=== PATIENT | female | born 1965 | race Caucasian/White ===

== ENCOUNTER → 2016-10-18 | Outpatient (CLI) | payer BC | END | disposition home or self-care (01) | LOC: GMAL 12:11 | PROVIDERS: ATTEND Family Medicine | DX: M79.1 Myalgia (principal) ==

== ENCOUNTER → 2016-12-22 | Outpatient (CLI) | payer BC ==
--- NOTE | 2016-12-24 13:19 | RAD ---
EXAM DESCRIPTION: Hand,Left 3 Views (accession [id number]), Hand,Right 3 Views (accession [id number]) CLINICAL HISTORY: 51 years,Female,PAIN IN LEFT HAND COMPARISON: None FINDINGS: The bilateral hand demonstrates no evidence of fractures or acute abnormalities. Soft tissues appear unremarkable. Minimal age-appropriate loss of joint space of all the distal and proximal interphalangeal joints. But some mild juxta-articular erosions seen at the fifth digit proximal interphalangeal joint bilaterally. IMPRESSION: No acute findings seen in either hand. 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 Some possible evidence of mild rheumatoid arthritis seen at the fifth proximal interphalangeal joint of both hands Electronically signed by: Lemuel Hanson MD 12/24/2016 1:20 PM CDT
--- NOTE | 2016-12-24 13:19 | RAD ---
EXAM DESCRIPTION: Hand,Left 3 Views (accession [id number]), Hand,Right 3 Views (accession [id number]) CLINICAL HISTORY: 51 years,Female,PAIN IN LEFT HAND COMPARISON: None FINDINGS: The bilateral hand demonstrates no evidence of fractures or acute abnormalities. Soft tissues appear unremarkable. Minimal age-appropriate loss of joint space of all the distal and proximal interphalangeal joints. But some mild juxta-articular erosions seen at the fifth digit proximal interphalangeal joint bilaterally. IMPRESSION: No acute findings seen in either hand. 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 Some possible evidence of mild rheumatoid arthritis seen at the fifth proximal interphalangeal joint of both hands Electronically signed by: Lemuel Hanson MD 12/24/2016 1:20 PM CDT
== END | disposition home or self-care (01) ==
LOC: RAD 08:07
PROVIDERS: ATTEND Orthopaedic Surgery
DX: M79.641 Pain in right hand (principal); M79.642 Pain in left hand

== ENCOUNTER → 2017-01-24 | Outpatient (CLI) | payer BC | END | disposition home or self-care (01) | LOC: GMAL 10:47 | PROVIDERS: ATTEND Family Medicine | DX: D51.3 Other dietary vitamin B12 deficiency anemia (principal); R53.83 Other fatigue; E55.9 Vitamin D deficiency, unspecified ==

== ENCOUNTER → 2017-10-24 | Outpatient (CLI) | payer BC | END | disposition home or self-care (01) | LOC: GMAJ 12:42 | PROVIDERS: ATTEND Family Medicine | DX: E55.9 Vitamin D deficiency, unspecified (principal) ==

== ENCOUNTER → 2017-10-31 | Outpatient (CLI) | payer BC ==
--- NOTE | 2017-11-03 03:18 | MAM ---
EXAM DESCRIPTION: 3D Screening BILATERAL : Digital Mammography. CLINICAL HISTORY: 52 years Female SCREENING . No complaints. No family history of breast cancer... COMPARISON: 2-D digital screening bilateral study 08/13/2010. No prior reports available. TECHNIQUE: Bilateral CC and MLO projection full-field images, 3-D tomosynthesis digital mammographic technique. Also bilateral synthesized CC/ MLO full-field images. CAD not utilized. FINDINGS: The breast parenchymal density pattern is: Scattered areas of fibroglandular density. No skin thickening or nipple retraction bilateral solitary coarse microcalcifications. Bilateral intramammary lymph nodes and right axillary lymph nodes. No focal, stellate mass or density, focal asymmetry , and no suspicious microcalcifications bilaterally. Stable mammograms compared to prior study, taking into account differences in mammographic technique IMPRESSION: BI-RADS CATEGORY: 2 - BENIGN FINDINGS. FOLLOW UP: Routine digital bilateral screening, one year interval from October 2017. Written communication explaining the IMPRESSION and follow-up, will be mailed to the patient and referring health care provider. According to the [employer], yearly mammograms are recommended starting at age 40 and continuing as long as a woman is in good health. Any breast change noted on a breast self-exam should be reported promptly to the patient's healthcare provider. Breast MRI is recommended for women with an approximately 20-25% or greater lifetime risk of breast cancer, including women with a strong family history of breast or ovarian cancer and women who have been treated for Hodgkin's disease. A negative mammographic report should not delay tissue diagnosis in patients with significant clinical history or physical findings. Extremely dense breast tissue limits the sensitivity of digital mammography. Electronically signed by: Tahir Lion MD 11/02/2017 4:11 PM CDT
== END ==
LOC: MAMMO 10:00
PROVIDERS: ATTEND Family Medicine
DX: Z12.31 Encounter for screening mammogram for malignant neoplasm of breast (principal)

== ENCOUNTER 2018-08-18 12:25 | Emergency (ER) | payer BC ==
--- NOTE | 2018-08-18 12:54 | ED.PDOC ---
History of Present Illness - General Chief Complaint: Back Pain or Injury Stated Complaint: lower back pain x 2 weeks Time Seen by Provider: 08/18/18 12:34 Source: patient Exam Limitations: no limitations - History of Present Illness Initial Comments: patient comes in today with low back pain 2 weeks that seems to be worsening. Patient states the pain is primarily in the middle of the lumbar sacral area without specific radiation. The pain is moderate in severity sharp, with worsening with movement. Patient denies any bladder or bowel condoms. Patient has chronic peripheral neuropathy but no change in sensation or motor strength since onset of this specific pain. She's had no recent injury, increased activity, or trauma. Patient was worried perhaps it was her kidneys but denies any dysuria, vaginal discharge, history of nephrolithiasis, or hematuria. Timing/Duration: getting worse Quality/Severity: moderate Back Pain Location: lumbar spine Method of Injury/Prior Injury: unknown Improving Factors: rest Worsening Factors: movement Associated Symptoms: denies symptoms Allergies/Adverse Reactions: Allergies NO KNOWN ALLERGY Allergy (Verified 04/12/14 19:38) Home Medications: Ambulatory Orders Lisinopril 10 mg PO DAILY #30 tab 04/12/14 Metformin HCl 500 mg PO BID #30 tab 04/12/14 Cyclobenzaprine HCl [Flexeril] 10 mg PO TID PRN #15 tab 08/18/18 Review of Systems - Review of Systems Constitutional: States: no symptoms reported. Denies: chills, fever, malaise EENTM: Denies: eye pain, ear pain, nose pain, nose congestion Respiratory: States: no symptoms reported. Denies: cough, short of breath Cardiology: States: no symptoms reported. Denies: chest pain, palpitations Gastrointestinal/Abdominal: States: no symptoms reported. Denies: abdominal pa in, diarrhea, nausea, vomiting Genitourinary: States: no symptoms reported. Denies: dysuria, frequency, hematuria Musculoskeletal: States: back pain Past Medical History (General) - Patient Medical History Hx Stroke: No Hx of COPD: No Hx Cardiac Disorders: No Hx Hypertension: Yes Hx Diabetes: Yes Surgical History: no surgical history - Vaccination History Hx Tetanus, Diphtheria Vaccination: No Hx Influenza Vaccination: No Hx Pneumococcal Vaccination: No Immunizations Up to Date: - Pt unsure of immunization currency - Social History Hx Tobacco Use: No Hx Alcohol Use: No Hx Substance Use: No - Female History Patient is a Female of Child Bearing Age (10 -59 yrs old): Yes Patient : No Family Medical History - Family History Father Living Status: Mother Family History: Unknown Hx Cardiac Disease: Yes - Mild NC Hx Family Cancer: - Mother has two spots on lung (undiagnosed) Physical Exam - Physical Exam General Appearance: Alert, Comfortable, No apparent distress Eyes, Ears, Nose, Throat Exam: PERRL/EOMI, normal ENT inspection, TMs normal, pharynx normal Neck Exam: non-tender, full range of motion, normal alignment, normal inspection Cardiovascular/Respiratory: regular rate, rhythm, no M/R/G, normal peripheral pulses, no JVD, normal breath sounds, no respiratory distress Peripheral Pulses: radial,right: 2+, radial,left: 2+ Gastrointestinal/Abdominal: normal bowel sounds, non tender, soft Back Exam: normal inspection, no CVA tenderness, no vertebral tenderness Neurologic: no motor/sensory deficits, alert, oriented x 3 Progress - Results/Orders Results/Orders: Laboratory Results Urine Color Yellow (Yellow) 08/18/18 13:34 Urine Appearance Clear (Clear) 08/18/18 13:34 Urine pH 6.0 (4.5-7.8) 08/18/18 13:34 Ur Specific Kiana 1.015 (1.005-1.030) 08/18/18 13:34 Urine Protein Negative mg/dL 08/18/18 13:34 Urine Glucose (UA) Negative mg/dL (Negative) 08/18/18 13:34 Urine Ketones Negative mg/dL (NEGATIVE) 08/18/18 13:34 Urine Blood Negative (Negative) 08/18/18 13:34 Urine Nitrite Negative 08/18/18 13:34 Urine Bilirubin Negative (NEGATIVE) 08/18/18 13:34 Urine Urobilinogen 0.2 mg/dL (0.2-1.0) 08/18/18 13:34 Ur Leukocyte Esterase Negative (Negative) 08/18/18 13:34 Urine RBC 0 /hpf 08/18/18 13:34 Urine WBC 0 /hpf 08/18/18 13:34 Ur Epithelial Cells 3-5 /hpf 08/18/18 13:34 Urine Bacteria Rare 08/18/18 13:34 Departure - Departure Clinical Impression: Back pain Qualifiers: Back pain location: low back pain Chronicity: acute Back pain laterality: bilateral Sciatica presence: without sciatica Qualified Code(s): M54.5 - Low back pain Disposition: Discharge to Home or Self Care Condition: Good Departure Forms: ED Discharge - Pt. Copy, Patient Portal Self Enrollment Instructions: DI for Low Back Pain Referrals: Lemuel Sanchez III, MD [Primary Care Provider] - 1-2 Weeks Prescriptions: Cyclobenzaprine HCl [Flexeril] 10 mg PO TID PRN #15 tab PRN Reason: Muscle Spasms Home Medications: Ambulatory Orders Lisinopril 10 mg PO DAILY #30 tab 04/12/14 Metformin HCl 500 mg PO BID #30 tab 04/12/14 Cyclobenzaprine HCl [Flexeril] 10 mg PO TID PRN #15 tab 08/18/18 Additional Instructions: heat to the area and gentle massage, sedation precautions with muscle relaxer. Follow up with PCP 3-4 days
[2018-08-18] MEDS ORDERED: KETOROLAC TROMETHAMINE INJ 60 MG/2 ML VIAL IM ONE (14:02)
[2018-08-18] MEDS ORDERED: CYCLOBENZAPRINE HCL 10 MG TAB PO ONE (14:02)
[2018-08-18 14:23] VITALS: BP 164/95; TEMP 97.7; O2SAT 98
== END 2018-08-18 14:23 | disposition home or self-care (01) ==
LOC: ER 12:25
DX: M54.5 Low back pain (principal); I10 Essential (primary) hypertension; E11.9 Type 2 diabetes mellitus without complications; Z79.84 Long term (current) use of oral hypoglycemic drugs; Z79.899 Other long term (current) drug therapy
CPT/HCPCS: 36415; 81001; J1885

== ENCOUNTER → 2019-02-12 | Outpatient (CLI) | payer BC | LOC: GMAL 11:11 | PROVIDERS: ATTEND Family Medicine | DX: Z00.00 Encounter for general adult medical examination without abnormal findings (principal); E55.9 Vitamin D deficiency, unspecified ==

== ENCOUNTER 2019-05-09 05:21 | Day surgery (SDC) | payer BC ==
[2019-05-09] MEDS ORDERED: PROPOFOL 200 MG/20 ML VIAL IV ONE (07:00)
[2019-05-09] MEDS ORDERED: LIDOCAINE 1% 10 ML VIAL INJ ONE (07:00)
[2019-05-09] MEDS ORDERED: LACTATED RINGERS 1,000 ML ONE (07:11)
[2019-05-09] MEDS ORDERED: MIDAZOLAM INJ 2 MG/2 ML VIAL ONE (08:42)
[2019-05-09 09:35] VITALS: BP 97/47; TEMP 97; O2SAT 93
--- NOTE | 2019-05-09 09:37 | OP ---
DATE OF PROCEDURE: 05/09/19 PREOPERATIVE DIAGNOSIS: 1. Positive Cologuard. POSTOPERATIVE DIAGNOSIS: 1. Small colonic polyp. PROCEDURE: 1. Colonoscopy with forceps excision of polyp. SURGEON: Ousmane Johnson MD ANESTHESIA: General. FINDINGS: One small polyp at the proximal sigmoid junction, 1.5 mm, completely excised. COMPLICATIONS: None. ESTIMATED BLOOD LOSS: Minimal. PLAN: Discharge. INDICATION: As stated. PROCEDURE: In lateral position and comfortable, general anesthesia was induced. Digital rectal exam was normal with no masses, no evidence of fissure or fistula. The scope was introduced with a little bit of difficulty through the sigmoid, but we were able to get all the way to the terminal ileum. Upon withdrawal, there were no significant polyps identified until the proximal sigmoid. There was a small, probably 1.5 mm polyp. It appeared possibly adenomatous. It was excised completely with a forceps. No bleeding. The remainder of the exam was normal. She was taken to Recovery to be discharged. #[id number] MTDD
== END 2019-05-09 10:47 | disposition home or self-care (01) ==
LOC: AMB 05:21
PROVIDERS: ATTEND Surgery
DX: R19.5 Other fecal abnormalities (principal); D12.5 Benign neoplasm of sigmoid colon; E11.9 Type 2 diabetes mellitus without complications; E78.00 Pure hypercholesterolemia, unspecified; I10 Essential (primary) hypertension; E66.9 Obesity, unspecified; L30.9 Dermatitis, unspecified; Z68.38 Body mass index [BMI] 38.0-38.9, adult; Z79.4 Long term (current) use of insulin; Z79.899 Other long term (current) drug therapy
CPT/HCPCS: 00811; 36416; 45380; 82948; J2250; J3490; J7120